=== PATIENT | male | born 1945 | race Caucasian/White ===

== ENCOUNTER 2022-08-08 15:34 | Outpatient (CLI) | payer OTHER ==
[~2022-08-08] VITALS: Ht 182.9 cm; Wt 78.5 kg
[2022-08-08] MEDS ORDERED: albuterol 2.5 MG/3 ML nebule NEB ONE (16:15)
== END 2022-08-08 23:59 | disposition home or self-care (01) ==
LOC: RT 15:34
PROVIDERS: ATTEND Chiropractor
DX: J84.9 Interstitial pulmonary disease, unspecified (principal); Z87.891 Personal history of nicotine dependence; Z79.899 Other long term (current) drug therapy
CPT/HCPCS: 94060; 94760